=== PATIENT | female | born 1940 | race Caucasian/White ===

== ENCOUNTER 2025-06-26 08:24 | Emergency (ER) | payer MEDICARE, MEDICAID ==
[~2025-06-26] VITALS: Ht 160 cm; Wt 59.0 kg
[2025-06-26 08:26] VITALS: TEMP 36.8; O2SAT 99
[2025-06-26] MEDS: LIDOCAINE HCL 1% 20ML VIAL INFIL ONE (09:09)
[2025-06-26] MEDS: TETANUS, DIPHTHERIA, PERTUSSIS VAC/PF 0.5ML (>10YR OLD) IM ONE (09:37)
[2025-06-26 10:27] VITALS: BP 135/78; PULSE 65; RESP 16; O2SAT 100
== END 2025-06-26 10:39 | disposition home or self-care (01) ==
LOC: ER 08:24
DX: S81.812A Laceration without foreign body, left lower leg, initial encounter (principal); E78.00 Pure hypercholesterolemia, unspecified; I10 Essential (primary) hypertension; I48.91 Unspecified atrial fibrillation; W22.8XXA Striking against or struck by other objects, initial encounter; Y93.89 Activity, other specified; Y92.89 Other specified places as the place of occurrence of the external cause; Y99.8 Other external cause status
CPT/HCPCS: 99283; 90715; 12002; 90471; J2003; A6449